=== PATIENT | male | born 1965 | race Caucasian/White ===

== ENCOUNTER 2017-04-04 22:46 | Inpatient (IN) | payer MEDICARE, OTHER ==
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
[2017-04-04 23:39] LABS: Appearance,Urine Clear (Clear); Bilirubin,Urine Negative (Negative); Blood,Urine Negative (Negative); Color,Urine Colorless; Glucose,Urine (UA) Negative (Negative); Ketones,Urine Negative (Negative); Leukocyte Esterase,Urine Negative (Negative); PH, Urine 6.5 (5.0-8.0); Protein,Urine Negative (Negative); Urobilinogen,Urine <2.0 mg/dL (<2.0)
[2017-04-04 23:50] LABS: Amphetamine Screen,Urine Not Detected (NotDetected); Barbiturate Screen,Urine Not Detected (NotDetected); Benzodiazepines Screen,Urine Not Detected (NotDetected); Cocaine Screen,Urine Not Detected (NotDetected); Methadone Screen, Urine Not Detected (NotDetected); Opiate Screen,Urine Not Detected (NotDetected); Oxycodone Screen, Urine Not Detected (NotDetected); Phencyclidine Screen,Urine Not Detected (NotDetected); Tricyclic Antidepressant,Urine Detected (NotDetected); Urn Cannabinoid Scrn Detected (NotDetected)
[2017-04-05 00:52] LABS: Basophils % (A) 0 %; Eosinophils # (A) 0.1 k/uL (0-0.7); Eosinophils % (A) 1 %; HCT 38.1 % (39.0-53.0); HGB 12.2 gm/dL (13.0-17.5); Lymphocytes % (A) 15 %; MCH 29.7 pg (25.0-35.0); MCV 92.7 fL (80.0-100.0); Mean Platelet Volume 6.2; Monocytes # (A) 0.4 k/uL (0-1.0); Monocytes % (A) 5 %; Neutrophils # (A) 5.6 k/uL (1.3-7.7); Neutrophils % (A) 78 %; Platelet Count 270 k/uL (150-450); RBC 4.11 m/uL (4.30-5.90); RDW 12.7 % (11.5-15.5); WBC 7.1 k/uL (3.8-10.6)
[2017-04-05 01:07] LABS: Specific Gravity,Urine 1.002 (1.001-1.035)
[2017-04-05 01:11] LABS: ALT 66 U/L (21-72); AST 61 U/L (17-59); Acetaminophen <10.0 ug/mL; Albumin 3.5 g/dL (3.5-5.0); Alkaline Phosphatase 91 U/L (38-126); Anion Gap 7 mmol/L; Bilirubin, Delta <0.1 mg/dL (0.0-0.2); Blood Urea Nitrogen 8 mg/dL (9-20); Calcium 9.3 mg/dL (8.4-10.2); Carbon Dioxide 28 mmol/L (22-30); Chloride 99 mmol/L (98-107); Glucose 80 mg/dL (74-99); Lithium <0.2 mmol/L; Potassium 3.9 mmol/L (3.5-5.1); Salicylate <1.0 mg/dL; Sodium 134 mmol/L (137-145); Total Bilirubin <0.1 mg/dL (0.2-1.3); Total Protein 6.1 g/dL (6.3-8.2)
[2017-04-05] MEDS ORDERED: QUEtiapine 400 MG TAB PO STA (01:36)
[2017-04-05] MEDS ORDERED: LORazepam 1 MG TAB PO PRN (02:05)
[2017-04-05] MEDS ORDERED: MAG HYDROX/AL HYDROX/SIMETH 30 ML CUP PO PRN (02:05)
[2017-04-05] MEDS ORDERED: ACETAMINOPHEN TAB 325 MG TAB PO PRN (02:05)
[2017-04-05] MEDS ORDERED: QUEtiapine 400 MG TAB PO SCH ×2 (02:30→21:00)
[2017-04-05] MEDS ORDERED: WATER FOR INJECTION, STERILE 10 ML IV ONE ×2 (02:57→15:19)
[2017-04-05] MEDS ORDERED: ZIPRASIDONE 20 MG VIAL IM ONE ×2 (02:57→15:19)
[2017-04-05] MEDS: ZIPRASIDONE 20 MG VIAL IM PRN ×2 (02:59→15:21)
[2017-04-05] MEDS: LORazepam 2 MG/ML INJ IM PRN ×2 (03:04→21:21)
[2017-04-05] MEDS ORDERED: LORazepam 2 MG/ML INJ IM ONE (05:55)
[2017-04-05] MEDS: NICOTINE 14MG/24HR PATCH TRANSDERM SCH (09:46)
[2017-04-05] MEDS: QUEtiapine 400 MG TAB PO SCH ×2 (12:06→21:22)
[2017-04-05 12:36] LABS: ALT 60 U/L (21-72); AST 50 U/L (17-59); Albumin 3.5 g/dL (3.5-5.0); Alkaline Phosphatase 74 U/L (38-126); Anion Gap 6 mmol/L; Blood Urea Nitrogen 6 mg/dL (9-20); Calcium 9.7 mg/dL (8.4-10.2); Carbon Dioxide 33 mmol/L (22-30); Chloride 103 mmol/L (98-107); Glucose 91 mg/dL (74-99); Potassium 4.3 mmol/L (3.5-5.1); Sodium 142 mmol/L (137-145); Total Bilirubin 0.2 mg/dL (0.2-1.3); Total Protein 6.1 g/dL (6.3-8.2)
[2017-04-05 12:44] LABS: Basophils % (A) 0 %; Eosinophils # (A) 0.1 k/uL (0-0.7); Eosinophils % (A) 2 %; HCT 41.4 % (39.0-53.0); HGB 13.2 gm/dL (13.0-17.5); Lymphocytes # (A) 1.1 k/uL (1.0-4.8); Lymphocytes % (A) 29 %; MCH 30.1 pg (25.0-35.0); MCHC 31.9 g/dL (31.0-37.0); MCV 94.6 fL (80.0-100.0); Mean Platelet Volume 6.4; Monocytes # (A) 0.3 k/uL (0-1.0); Monocytes % (A) 8 %; Neutrophils # (A) 2.2 k/uL (1.3-7.7); Neutrophils % (A) 57 %; Platelet Count 290 k/uL (150-450); RBC 4.38 m/uL (4.30-5.90); RDW 12.8 % (11.5-15.5); WBC 3.8 k/uL (3.8-10.6)
[2017-04-05] MEDS: QUEtiapine 100 MG TAB PO PRN (13:41)
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
[2017-04-05] MEDS ORDERED: LORazepam 2 MG/ML INJ IM STA (15:22)
[2017-04-05 17:23] LABS: Hemoglobin A1C 5.4 % (4.0-6.0)
[2017-04-05] MEDS: LITHIUM CARBONATE ER 450 MG TABLET.ER PO SCH (21:20)
[2017-04-05] MEDS: LITHIUM CARBONATE 300 MG CAP PO SCH (21:20)
[2017-04-06] MEDS ORDERED: ZIPRASIDONE 20 MG VIAL IM ONE (00:08)
[2017-04-06] MEDS ORDERED: WATER FOR INJECTION, STERILE 10 ML IV ONE ×2 (00:08→14:21)
[2017-04-06] MEDS: ZIPRASIDONE 20 MG VIAL IM PRN ×2 (00:12→14:30)
[2017-04-06] MEDS: NICOTINE 14MG/24HR PATCH TRANSDERM SCH ×3 (00:16→09:41)
[2017-04-06] MEDS ORDERED: LORazepam 2 MG/ML INJ IV STA (00:34)
[2017-04-06] MEDS ORDERED: LORazepam 2 MG/ML INJ IM STA ×2 (00:46→14:22)
--- NOTE | 2017-04-06 00:48 | P.MHFACE ---
Face to Face Eval of Restraint - Evaluation Patient's Immediate Situation: Endangers self safety, Endangers staff safety, Violent behavior Patient's Reaction to the Intervention: Cooperative, Angry, Anxious, Restless Patient's Medical & Behavioral Condition: Awake, Alert, Follows directions, Agitated, Manic, Flight of ideas Need to Continue or Terminate Restraint or Seclusion: Continue
[2017-04-06 05:28] LABS: Cholesterol 142 mg/dL (<200); HDL Cholesterol 54 mg/dL (40-60); LDL Cholesterol,Calculated 79 mg/dL (0-99); Triglycerides 44 mg/dL (<150)
[2017-04-06] MEDS ORDERED: LORazepam 2 MG/ML INJ IM PRN (08:03)
[2017-04-06] MEDS: QUEtiapine 400 MG TAB PO SCH ×2 (09:02→20:29)
[2017-04-06] MEDS: LORazepam 1 MG TAB PO PRN ×3 (09:04→19:34)
[2017-04-06] MEDS: LORATADINE 10 MG TAB PO SCH (12:14)
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
--- NOTE | 2017-04-06 14:54 | P.MHFACE ---
Face to Face Eval of Restraint - Evaluation Patient's Immediate Situation: Endangers others' safety, Endangers staff safety Patient's Immediate Situation - Comment: Patient is a 51-year-old male who is becoming increasingly agitated, yelling, demanding that his shoes be given to him. I spoken with the patient earlier today stating that he would not have issues due to having made physical threats taking swings at staff and the patient continued to request issues. Patient became increasingly demanding, went up to security threaten to kick the security dog, was making threats verbally to staff, and would not follow verbal redirection. Patient's Reaction to the Intervention: Cooperative Patient's Reaction to the Intervention - Comment: Patient was escorted to the seclusion room and was cooperative during this process and was also cooperative with restraints being placed. When I spoke with patient his speech remains slightly pressured, he stated that he just wanted his shoes so that he could look nice when his daughter visited. I explained to patient that we had discussed that he was not getting issues because of his episodes of physically and verbally threatening staff. Patient was not resisting the restraints and received Geodon 20 mg IM and Ativan 2 mg IM prior to going into seclusion and restraint. Patient's Medical & Behavioral Condition: Awake, Alert, Agitated, Manic Need to Continue or Terminate Restraint or Seclusion: Continue Need to Continue or Terminate Restraint/Seclusion - Comment: Patient has been on a one-to-one with security due to several episodes of physically aggressive and threatening behavior as well as verbally threatening behavior on the unit. Patient became increasingly agitated threatening to kick and hit the security dog, also went [id number] with the security personnel and was not responding to verbal redirection. Patient's behavior continued to escalate and seclusion and restraint were ordered to protect staff and other patient's safety.
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
[2017-04-06] MEDS ORDERED: chlorproMAZINE 25 MG/ML 2 ML AMP IM STA (20:13)
[2017-04-06] MEDS ORDERED: diphenhydrAMINE 50 MG/ML 1 ML VIAL IM STA (20:14)
[2017-04-06] MEDS: LITHIUM CARBONATE 300 MG CAP PO SCH (21:10)
[2017-04-06] MEDS: LITHIUM CARBONATE ER 450 MG TABLET.ER PO SCH (21:10)
--- NOTE | 2017-04-06 23:22 | XR ---
EXAMINATION TYPE: XR hand complete LT DATE OF EXAM: 04/06/2017 COMPARISON: NONE HISTORY: Pain TECHNIQUE: 3 views FINDINGS: There is impacted comminuted fracture of the distal radius. There is fracture of ulnar styl oid process. There is no dislocation. There is some thickening of the first metacarpal that could rel ate to old healed fracture. IMPRESSION: Fractures of the distal radius and ulna.
--- NOTE | 2017-04-06 23:23 | XR ---
EXAMINATION TYPE: XR wrist limited LT DATE OF EXAM: 04/06/2017 COMPARISON: NONE HISTORY: Pain TECHNIQUE: 2 views FINDINGS: There is impacted transverse fracture of the distal radius with comminution. Fracture line extends to the articular surface. There is transverse fracture of the ulnar styloid process. There is some anterior angulation of the radius fracture. I see no dislocation. The carpal bones appear intac t. IMPRESSION: Distal radius and ulna fractures as above.
[2017-04-07] MEDS: ZIPRASIDONE 20 MG VIAL IM PRN ×2 (02:46→22:25)
[2017-04-07] MEDS ORDERED: diphenhydrAMINE 50 MG/ML 1 ML VIAL IM PRN (03:13)
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
[2017-04-07] MEDS: LORATADINE 10 MG TAB PO SCH (08:20)
[2017-04-07] MEDS: NICOTINE 14MG/24HR PATCH TRANSDERM SCH (08:20)
[2017-04-07] MEDS: QUEtiapine 400 MG TAB PO SCH ×2 (08:21→21:03)
[2017-04-07] MEDS: LORazepam 1 MG TAB PO PRN (08:23)
[2017-04-07] MEDS: HYDROcodone/APAP 7.5-325MG 1 EACH TAB PO PRN ×2 (08:23→14:11)
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
[2017-04-07] MEDS: QUEtiapine 100 MG TAB PO PRN (13:01)
[2017-04-07] MEDS: IBUPROFEN 800 MG TAB PO PRN (13:01)
[2017-04-07] MEDS: cloZAPine 25 MG TAB PO SCH ×2 (14:08→21:03)
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
[2017-04-07] MEDS: LITHIUM CARBONATE ER 450 MG TABLET.ER PO SCH (21:03)
[2017-04-07] MEDS: LITHIUM CARBONATE 300 MG CAP PO SCH (21:20)
[2017-04-07] MEDS ORDERED: WATER FOR INJECTION, STERILE 10 ML IV ONE (22:25)
[2017-04-07] MEDS ORDERED: ZIPRASIDONE 20 MG VIAL IM ONE (22:25)
[2017-04-08] MEDS: HYDROcodone/APAP 7.5-325MG 1 EACH TAB PO PRN ×4 (04:06→21:43)
[2017-04-08] MEDS: IBUPROFEN 800 MG TAB PO PRN ×3 (06:44→21:44)
[2017-04-08] MEDS: NICOTINE 14MG/24HR PATCH TRANSDERM SCH (07:48)
[2017-04-08] MEDS: cloZAPine 25 MG TAB PO SCH (07:49)
[2017-04-08] MEDS: QUEtiapine 400 MG TAB PO SCH (07:49)
[2017-04-08] MEDS: LORATADINE 10 MG TAB PO SCH (07:49)
[2017-04-08] MEDS: QUEtiapine 100 MG TAB PO PRN ×2 (12:01→18:30)
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
[2017-04-08] MEDS ORDERED: WATER FOR INJECTION, STERILE 10 ML IV ONE (14:36)
--- NOTE | 2017-04-08 14:41 | P.PN ---
Subjective Progress Note Date: 04/08/17 Principal diagnosis: Left distal radius and ulna fractures The patient is a 51-year-old male who we've been following for a left distal radius and ulna fracture. The patient was placed in a volar splint yesterday. Repeat x-rays today reveal an improved position of the distal radius fracture. The patient is much more alert today. He states that the pain has increased in his left wrist. He is currently receiving Motrin and Lincroft is needed for pain. He states that he unwrapped his Sage wrap to loosen the wrap due to tightness. The patient states that he has been elevating his wrist. The patient is adamant about getting the wrist fixed at a different facility when he leaves the hospital. He states that he wants the wrist to be perfect. He is left- handed. He is currently staying in the mental health unit at [facility] until stable for discharge. Transfer to another psychiatric Hospital is on hold at this time. No other new complaints today. Objective - Vital Signs Vital signs: Vital Signs Temp 98.5 F 04/08/17 06:51 Pulse 91 04/08/17 06:51 Resp 18 04/08/17 06:51 BP 164/96 04/08/17 06:51 Pulse Ox 97 04/05/17 02:46 - Exam The patient is a 51-year-old male who is in no acute distress. He is alert and oriented 3. He appears agitated upon exam. Exam of the left upper extremity reveals a well fitting splint. No areas of irritation are noted. Patient has good finger motion. He complains of numbness to his left middle and ring fingers. He has full range of motion of the left elbow and shoulder. Circulatory status is intact. - Labs CBC & Chem 7: 04/05/17 11:56 04/05/17 11:56 Assessment and Plan (1) Fracture of distal end of left radius and ulna Current Visit: Yes Status: Acute Code(s): S52.502A - UNSP FRACTURE OF THE LOWER END OF LEFT RADIUS, INIT; S52.602A - UNSP FRACTURE OF LOWER END OF LEFT ULNA, INIT FOR CLOS FX SNOMED Code(s): 507813676 Plan: The clinical and x-ray findings were discussed with the patient and nursing staff. X-rays of the left wrist today reveal a better positioning of the distal radius fracture with very slight dorsal angulation. No shortening noted. This should not affect wrist range of motion in the future if fracture does not displace. No treatment is needed for the ulnar styloid fracture. The numbness he is experiencing is due to swelling in the carpal tunnel. This may improve as swelling decreases and the fractures heal. Continue Motrin and Lincroft as needed. Continue elevation of the extremity. Continue current splint. May loosen Sage wrap as needed for swelling. The patient's fracture is in an acceptable position at this time. No surgical intervention is recommended. The patient is adamant that he would like the wrist to be "perfect " and would like it fixed. He states that he wants to go a different orthopedic surgeon to get it fixed. The patient may follow-up with an orthopedic surgeon of his choosing. We will sign off at this time.
[2017-04-08] MEDS: ZIPRASIDONE 20 MG VIAL IM PRN (15:07)
--- NOTE | 2017-04-08 15:29 | XR ---
EXAMINATION TYPE: XR wrist limited LT DATE OF EXAM: 04/08/2017 COMPARISON: NONE HISTORY: 51 year-old male left distal radius fracture with splint TECHNIQUE: 2 views FINDINGS: Overlying plaster splint obscures fine osseous detail on the frontal view. Redemonstrated mildly disp laced transverse fracture through the base of the ulnar styloid process. Also, redemonstrated comminu nikko fracture of the distal radius with metadiaphyseal, metaphyseal, and epiphyseal components with a intra-articular extension at the radiolunate joint and probably the distal radial ulnar joint as well . The overall degree of dorsal angulation shows improvement. Soft tissue swelling. IMPRESSION: Comminuted fracture distal radius with intra-articular extension at the radiolunate joint. The overal l dorsal angulation shows improvement. Additional mildly displaced fracture base of the ulnar styloid process also shows less displacement i s compared to prior.
[2017-04-08] MEDS ORDERED: cloZAPine 25 MG TAB PO STA ×2 (18:22)
[2017-04-08] MEDS: LITHIUM CARBONATE 300 MG CAP PO SCH (20:17)
[2017-04-08] MEDS: LITHIUM CARBONATE ER 450 MG TABLET.ER PO SCH (20:17)
[2017-04-08] MEDS ORDERED: QUEtiapine 100 MG TAB PO SCH (21:00)
[2017-04-08] MEDS ORDERED: cloZAPine 25 MG TAB PO SCH (21:00)
[2017-04-09] MEDS ORDERED: ZIPRASIDONE 20 MG VIAL IM ONE (02:27)
[2017-04-09] MEDS ORDERED: WATER FOR INJECTION, STERILE 10 ML IV ONE ×2 (02:27→17:52)
[2017-04-09] MEDS: ZIPRASIDONE 20 MG VIAL IM PRN ×2 (02:28→18:02)
[2017-04-09] MEDS: IBUPROFEN 800 MG TAB PO PRN ×3 (03:59→20:48)
[2017-04-09] MEDS: HYDROcodone/APAP 7.5-325MG 1 EACH TAB PO PRN ×4 (04:00→21:48)
[2017-04-09] MEDS: QUEtiapine 100 MG TAB PO PRN (05:36)
[2017-04-09] MEDS: cloZAPine 25 MG TAB PO SCH ×2 (08:55→12:19)
[2017-04-09] MEDS: QUEtiapine 200 MG TAB PO SCH ×2 (08:55→21:18)
[2017-04-09] MEDS: LORATADINE 10 MG TAB PO SCH (08:55)
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
[2017-04-09] MEDS: LITHIUM CARBONATE ER 450 MG TABLET.ER PO SCH (20:47)
[2017-04-09] MEDS: LITHIUM CARBONATE 300 MG CAP PO SCH (20:48)
[2017-04-09] MEDS ORDERED: cloZAPine 25 MG TAB PO SCH (21:00)
[2017-04-10] MEDS: QUEtiapine 100 MG TAB PO PRN (00:59)
[2017-04-10] MEDS ORDERED: ZIPRASIDONE 20 MG VIAL IM ONE (02:06)
[2017-04-10] MEDS ORDERED: WATER FOR INJECTION, STERILE 10 ML IV ONE (02:06)
[2017-04-10] MEDS: ZIPRASIDONE 20 MG VIAL IM PRN (02:11)
[2017-04-10] MEDS: HYDROcodone/APAP 7.5-325MG 1 EACH TAB PO PRN ×4 (05:09→23:00)
[2017-04-10] MEDS: IBUPROFEN 800 MG TAB PO PRN ×3 (05:12→21:18)
[2017-04-10] MEDS: LORATADINE 10 MG TAB PO SCH ×2 (07:55→09:10)
[2017-04-10] MEDS: QUEtiapine 200 MG TAB PO SCH (07:55)
[2017-04-10] MEDS: cloZAPine 25 MG TAB PO SCH ×4 (07:55→21:16)
[2017-04-10] MEDS ORDERED: cloZAPine 25 MG TAB PO SCH (09:00)
[2017-04-10] MEDS: QUEtiapine 100 MG TAB PO SCH ×2 (09:09→21:16)
[2017-04-10] MEDS: NICOTINE POLACRILEX 2 MG GUM BUCCAL PRN ×4 (09:11→19:33)
[2017-04-10] MEDS ORDERED: amLODIPine 5 MG TAB PO SCH (09:45)
--- NOTE | 2017-04-10 10:04 | XR ---
EXAMINATION TYPE: XR wrist complete LT , 4 VIEWS DATE OF EXAM ORDERED: 04/10/2017 HISTORY: pain and known fracture. COMPARISON: Previous study dated 04/08/2017. FINDINGS: There is a fracture of the distal radius and ulna. The radial fracture extends intra-artic ularly and is mildly comminuted. Position and alignment are similar to previous. IMPRESSION: REDEMONSTRATION OF FRACTURES OF THE DISTAL RADIUS AND ULNA. CODE D: SUBSEQUENT ENCOUNTER FOR CLOSED FRACTURE WITH ROUTINE HEALING.
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
--- NOTE | 2017-04-10 12:17 | P.PN ---
Progress Note - Text Progress Note Date: 04/10/17 Interval History: Patient is a 51-year-old male who was seen today. Initially this morning on entering the unit the patient was agitated, yelling, calling me names. When I spoke with patient later this afternoon he was calm her and stated that he just goes off like that when he is told to do things. Patient apologized for his behavior to me this morning. Patient stated that he is tired of being told what to do as he is spent the last 10 years in facilities. Patient reports his last nursing home only had 4 residents and he was being followed up in [place], he is attempting to locate the name of the facility as he states it was not [facility] nor [facility] in [place]. Patient reports that he was using his Seroquel on an as-needed basis at home as his prescriptions had not been refilled because he missed appointments and he had run out of lithium completely. Patient states at home he was only sleeping 1-2 hours a night and was up doing things. Patient states that his sleep here continues to be interrupted and he states he thought he slept about 4 hours last night. Patient reports no side effects from the medication. Patient was able to find out from his fianc that he had been followed at [facility] [place] in [place] while he was in the nursing home in [place]. Mental Status: Appearance/Attitude: Patient was dressed in a hospital gown over pajama bottoms, wearing slippers and now having the splint on his left forearm. Patient was cooperative Behavior: Patient did not exhibit any psychomotor agitation or retardation during my interview however the patient this morning was extremely agitated, yelling, pacing and making demands. Speech/Language: Patient's speech was spontaneous of normal volume and rhythm and he was coherent Thought Process: Patient was goal-directed he was not tangential or circumstantial and there is no evidence of loose associations or flight of ideas. Thought Content: Patient was not responding to internal stimuli and denied auditory or visual hallucinations and no paranoid or delusional ideation was elicited. Patient stated to me that he becomes easily upset and angry as he did this morning when he is being told to do things. He states that he's been told to do things for the last 10 years. Patient apologized for his behavior this morning and states that he knows that he should not act that way. Patient states he slept about 4 hours last evening. Suicidal/Homicidal Ideation: Patient denies any current suicidal or homicidal ideation. Sensorium/Cognition: Patient is alert and oriented to person, place, and time and his recent and remote memory were grossly intact. Mood/Affect: Patient's mood remained labile with periods of cooperation as well as periods of agitation and his affect is appropriate to his mood Insight/Judgment: Patient's insight and judgment are limited. Assessment: Patient had an EKG yesterday which showed an incomplete right bundle branch block and was reviewed by the resident medical officer and felt to not be of significance, his forearm was re-x-rayed this morning showing that there was no change in the alignment. Patient has put on his splint and states she will continue to wear it. Patient was seen by the resident medical officer advised that he needed to wear the splint. Patient has outbursts of becoming quite angry, agitated and he reports it is in response to being told what to do. Patient states he knows he should not act that way and apologized for his behavior toward me this morning. Patient reported that he was followed at [facility] in [place] while he was living in a nursing home in [place]. Patient also stated today that he had been using his Seroquel on an as-needed basis at home because he was running out of the medication and had been off of the lithium for some time. Patient is not having any side effects from the medication, his blood pressure was elevated and the resident medical officer' s started him on an anti-hypertensive. Plan: [Patient will be increased to 75 mg of Clozaril 3 times a day, his Seroquel will be decreased to 100 mg twice a day, Seroquel 100 mg 3 times a day on an as-needed basis will be continued, Benadryl 50 mg IM twice a day when necessary will also be continued as well as Geodon 20 mg IM twice a day when necessary. Patient will also continue on lithium carbonate 1050 mg a day and a repeat level will be drawn on Tuesday and should remain at 0.5 his dose will be increased to 1200 mg. I discussed the above changes in medication with the patient and he was agreeable to all of these. Patient is also now receiving Norvasc for his elevated blood pressure. Patient continues to request that he be allowed to use chewing tobacco or go out for cigarette and he is reminded that he is not able to do so, but states that the Nicorette gum and patch do not work for him. Will have patient sign a release of information and faxed to [facility] [place] to obtain treatment information while he was being seen there. Patient has not retracted his 3 day notice and will discuss again with him tomorrow and if he does not retract will begin an involuntary process.
[2017-04-10] MEDS: diphenhydrAMINE 50 MG/ML 1 ML VIAL IM PRN (14:21)
[2017-04-10] MEDS ORDERED: amLODIPine 5 MG TAB PO STA (15:52)
[2017-04-10] MEDS: LITHIUM CARBONATE 300 MG CAP PO SCH (21:16)
[2017-04-10] MEDS: LITHIUM CARBONATE ER 450 MG TABLET.ER PO SCH (21:16)
[2017-04-11] MEDS ORDERED: WATER FOR INJECTION, STERILE 10 ML IV ONE (01:15)
[2017-04-11] MEDS ORDERED: ZIPRASIDONE 20 MG VIAL IM ONE (01:15)
[2017-04-11] MEDS: ZIPRASIDONE 20 MG VIAL IM PRN (01:15)
[2017-04-11] MEDS: NICOTINE POLACRILEX 2 MG GUM BUCCAL PRN ×2 (01:15→19:49)
[2017-04-11] MEDS: diphenhydrAMINE 50 MG/ML 1 ML VIAL IM PRN (01:16)
[2017-04-11] MEDS: HYDROcodone/APAP 7.5-325MG 1 EACH TAB PO PRN ×3 (05:33→16:38)
[2017-04-11] MEDS: amLODIPine 5 MG TAB PO SCH (09:40)
[2017-04-11] MEDS: cloZAPine 25 MG TAB PO SCH ×2 (09:40→14:32)
[2017-04-11] MEDS: LORATADINE 10 MG TAB PO SCH (09:41)
[2017-04-11] MEDS: IBUPROFEN 800 MG TAB PO PRN ×3 (09:43→22:28)
[2017-04-11] MEDS: QUEtiapine 100 MG TAB PO SCH (09:43)
[2017-04-11] MEDS: BENZOCAINE/MENTHOL LOZENG 1 EACH LOZENGE MUCOUS MEM PRN ×4 (11:08→22:29)
[2017-04-11] MEDS ORDERED: QUEtiapine 25 MG TAB PO PRN (12:47)
--- NOTE | 2017-04-11 12:47 | P.PN ---
Progress Note - Text Progress Note Date: 04/11/17 Interval History: Patient is a 51-year-old male who was seen today, patient reports that he still is only sleeping about 2 hours a night. Patient states that he continues to have a lot of energy and went on to describe that when he was at the longterm and he was allowed to go outside he was running 5 miles a day or biking up to 40 miles a day. Patient also told me that he was working a job near the longterm and was not eating more than one meal a day. Patient states he had a lot of energy when he was at the longterm as well. Patient went on to state that he was of great help to other residents there and likes to think that he can help others while he is here. Patient went on to describe an episode when he was at [facility] where he assisted a patient who had a seizure. Patient reported that he is not feeling tired. Patient requested his shoes back and we discussed when that would occur and he was agreeable with that. Patient and I also discussed his 3 day notice. Patient reports no side effects from the medication and has been continuing to leave his splint on his left forearm. Mental Status: Appearance/Attitude: Patient is appropriately dressed, makes eye contact and is cooperative. Behavior: Patient does not display any psychomotor agitation or retardation. Patient does walk the halls Speech/Language: Patient's speech is pressured and of normal volume and rhythm at times he can become loud but follows verbal redirection to lower his voice and he is coherent Thought Process: Patient is goal-directed initially when responding to questions but can become tangential, no loose associations or flight of ideas Thought Content: Patient denied auditory or visual hallucinations and no paranoid or delusional ideation was elicited. Patient reports he is not feeling tired sleeping about 2 hours a night and does nap on and off during the day. Patient states that he is walking the halls and likes to keep himself busy. 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 Patient reports his appetite is good and states that he had not been eating much when he was in the longterm. Patient states he had a lot of energy there and was exercising on a daily basis there. Suicidal/Homicidal Ideation: Patient denied any current homicidal or suicidal ideation Sensorium/Cognition: Patient is alert and oriented to person, place, time and his recent and remote memory are grossly intact Mood/Affect: Patient's mood has been less labile, and his affect is appropriate Insight/Judgment: Patient's insight and judgment are fair Assessment: Patient was irritable yesterday morning but has been cooperative since that time with no outbursts, verbal threats or physically threatening behavior. Patient states that he continues to sleep about 2 hours a night and has a lot of energy and is seen walking the unit most of the day. Patient reports his appetite has improved. Patient reports that he has been leaving his splint on his left arm, reports the pain is tolerable. Patient and I discussed his 3 day notice, his medications, when he could have his shoes returned to him and he was cooperative during this interview. Plan: Patient will continue His Clozaril titrated up and will now be on 75 mg in the morning 75 mg in afternoon and 100 at bedtime, Seroquel was decreased to 50 mg twice a day area patient will continue on lithium at 1050 mg a day with a repeat of both his lithium level and a CBC with a differential tomorrow. Should the patient's lithium level remained 0.5 I will increase his dose. Patient and I discussed he is now on a one to one with security only and should he have 24 hours of no episodes of agitation, threatening behavior both verbally or physically than he can go to a one-on-one with staff. Patient was agreeable with this plan and also withdrew his 3 day notice.
[2017-04-11] MEDS ORDERED: cloZAPine 100 MG TAB PO SCH (21:00)
[2017-04-11] MEDS: LITHIUM CARBONATE ER 450 MG TABLET.ER PO SCH (21:03)
[2017-04-11] MEDS: QUEtiapine 50 MG TAB PO SCH (21:05)
[2017-04-11] MEDS: LITHIUM CARBONATE 300 MG CAP PO SCH (21:05)
[2017-04-12] MEDS ORDERED: WATER FOR INJECTION, STERILE 10 ML IV ONE ×2 (03:41→22:12)
[2017-04-12] MEDS: ZIPRASIDONE 20 MG VIAL IM PRN ×3 (03:52→23:56)
[2017-04-12] MEDS: diphenhydrAMINE 50 MG/ML 1 ML VIAL IM PRN (03:53)
[2017-04-12] MEDS: BENZOCAINE/MENTHOL LOZENG 1 EACH LOZENGE MUCOUS MEM PRN ×4 (04:47→22:21)
[2017-04-12] MEDS: HYDROcodone/APAP 7.5-325MG 1 EACH TAB PO PRN ×3 (05:26→18:03)
[2017-04-12] MEDS: IBUPROFEN 800 MG TAB PO PRN ×2 (05:27→15:26)
[2017-04-12] MEDS: LORATADINE 10 MG TAB PO SCH (09:07)
[2017-04-12] MEDS: QUEtiapine 50 MG TAB PO SCH (09:08)
[2017-04-12] MEDS: amLODIPine 5 MG TAB PO SCH (09:08)
[2017-04-12] MEDS: cloZAPine 25 MG TAB PO SCH ×2 (09:08→15:20)
[2017-04-12 10:24] LABS: HCT 43.6 % (39.0-53.0); HGB 13.9 gm/dL (13.0-17.5); MCH 29.2 pg (25.0-35.0); MCHC 31.9 g/dL (31.0-37.0); MCV 91.4 fL (80.0-100.0); Mean Platelet Volume 6.5; Platelet Count 358 k/uL (150-450); RBC 4.77 m/uL (4.30-5.90); RDW 12.4 % (11.5-15.5); WBC 7.8 k/uL (3.8-10.6)
--- NOTE | 2017-04-12 13:13 | P.PN ---
Progress Note - Text Progress Note Date: 04/12/17 Interval History: Patient is a 51-year-old male who was seen this morning and stated that he slept more last evening and naps during the day. Patient was requesting that he be given his shoes, as well as a sling for his arm. Patient continues to request to be released so that he can smoke a cigarette or 2 tobacco. Patient has been with one to one with security and there've been no incidents of threatening or assaultive behavior. Patient does not report any auditory or visual hallucinations and states he is not feeling suicidal or homicidal. Patient continues to have a lot of energy, he states he is not feeling tired and that his arm still does hurt on occasion but he is not taking any opiate pain medication. Patient reports no side effects from the medication and states he is not feeling groggy during the day. Mental Status: Appearance/Attitude: Patient is dressed in casual clothes, makes eye contact and is cooperative Behavior: Patient does not display any psychomotor agitation or retardation. Speech/Language: Patient's speech remains pressured, at loud at times and he is coherent Thought Process: Patient is goal-directed, can become tangential but there is no loose associations or flight of ideas elicited Thought Content: patient denies auditory or visual hallucinations no delusions or paranoid ideation were elicited. Patient does make demands to be released to smoke, questioning how long he needs to be here but is redirectable. Patient states that he slept more last night about 3-1/2 hours. Patient does state that he will rest in his room during the day but is not napping. Suicidal/Homicidal Ideation: Patient denies any current suicidal or homicidal ideation Sensorium/Cognition: Patient is alert and oriented to person, place, and time and his recent and remote memory are grossly intact Mood/Affect: Patient's mood remains irritable, and his affect is appropriate to his mood Insight/Judgment: Patient's insight and judgment are fair Assessment: Patient has not displayed any verbally or physically threatening behavior, he slept for 3-1/2 hours last evening and he has been redirectable on the unit and cooperative leaving his splint on his left arm. Patient continues to request to be discharged so that he can smoke or chew tobacco. Patient reports no side effects from the medication and states that he did sleep well last evening, this was 3-1/2 hours the most he is slept since his admission. He denies any grogginess during the day. Patient has been eating well. Patient attends intermittent groups. Patient's lithium level was drawn late and was 0.4 awaiting the [facility] differential Plan: Patient's lithium will be increased to 600 mg twice a day, his Clozaril will be increased to 75 mg twice a day and 150 mg at bedtime. We will discontinue his Seroquel standing order. We'll reorder and check his lithium level in several days. Patient's one-to-one supervision was discontinued, patient was returned his shoes and was permitted to have a sling for his left arm.
--- NOTE | 2017-04-12 14:17 | P.PN ---
Subjective Progress Note Date: 04/12/17 Principal diagnosis: Hypertension Patient is a 51-year-old male with a past medical history seasonal ALLERGIES, headaches, BPH, and deltoid injury who was admitted to the mental health unit via a petition from [facility] and was brought in by police due to disorganized in the behavior. He had a left wrist fracture, has seen ortho it was reduced and in good alignment. Ortho has signed off as patient wants to follow with a different surgeon to make sure his wrist is perfect. He was been taking his splint off multiple times and refusing to wear the splint. Patient seen and examined. He is asking to recheck his blood pressure. I rechecked it was 149/89 and has been coming down slightly. He states that it is lower when he is not anxious. He is also wondering about wearing a sling as his splint feels heavy and difficult to keep his arm elevated all day. I did discuss this with Dr. Tijerina and she felt it was safe for him to have a sling at this point in time. He is asking about when to follow up with for the fracture. We discussed the fact that he did not want to see the [place] group anymore here and they therefore stayed stated he could follow up with whomever he wanted. He states he does not remember saying this, but that he was very angry when it happened and he is doing much better and is glad he came in for treatment. He is now willing to follow up with them and I have placed Dr. Bejarano information on the discharge tab, he also states it might be easier to follow up in [place] as his girlfriend lives there and I have placed an additional orthopedic surgeons information Dr. Saeed Lo on the chart who practices out of [place]. He lives in [place] and needs a primary care physician to follow with. I will place Dr. Hanny Alcantara's information on the chart who practices out of [facility]. Objective - Vital Signs Vital signs: Vital Signs Temp 98.5 F 04/12/17 02:12 Pulse 105 H 04/12/17 02:12 Resp 16 04/12/17 02:12 BP 160/90 04/12/17 02:32 Pulse Ox 97 04/05/17 02:46 - Exam General: non toxic, no distress, appears at stated age Derm: warm, dry, capillary refill less than 2 seconds left fingers Head: atraumatic, normocephalic, symmetric Eyes: EOMI, no lid lag, anicteric sclera Cardiovascular: S1S2 reg, no murmur Lungs: CTA bilateral, no rhonchi, no rales , no accessory muscle use Ext: Left wrist with splint in place, no edema in bilateral lower extremities Psych: Alert, oriented, adversarial - Labs CBC & Chem 7: 04/12/17 09:40 04/05/17 11:56 Assessment and Plan Assessment: Left ridal and ulnar fractures - Maintain splint, and sling for comfort -He will need follow-up with orthopedics approximately one week after discharge. I have placed follow-up information on the tablet as outlined above in HPI. -Pain control HTN - Continue Norvasc 10 mg daily -He'll need outpatient follow-up for this may have placed Dr. Alcantara's information on the chart she practices near his home Seasonal ALLERGIES -Claritin Multiple facial lacerations, healed Bipolar with psychosis/aggression -Your psych management Tobacco and marijuana use -Cessation encouraged -Nicotine replacement Thank you for allowing us to participate in the care of this patient. We will follow peripherally. Do not hesitate to contact us with questions. Someone can be reached from the [facility] hospitalist group at all hours of the day at [phone].
[2017-04-12 14:55] LABS: Eosinophils # (M) 0.23 k/uL (0-0.7); Lymphocytes # (M) 0.47 k/uL (1.0-4.8); Monocytes # (M) 0.31 k/uL (0-1.0); Neutrophils # (M) 6.79 k/uL (1.3-7.7); Neutrophils % (M) 87 %; Nucleated Red Blood Cells 0 /100 WBC (0-0); Total Cells Counted 100
[2017-04-12] MEDS: LITHIUM CARBONATE 300 MG CAP PO SCH (20:16)
[2017-04-12] MEDS ORDERED: cloZAPine 100 MG TAB PO SCH (21:00)
[2017-04-12] MEDS: PROPRANOLOL 20 MG TAB PO STA ×2 (22:05→23:22)
[2017-04-12] MEDS ORDERED: ZIPRASIDONE 20 MG VIAL IM ONE ×2 (22:12→23:47)
[2017-04-13] MEDS ORDERED: LORazepam 1 MG TAB PO STA (00:53)
[2017-04-13] MEDS ORDERED: ZIPRASIDONE 20 MG VIAL IM STA (00:53)
[2017-04-13] MEDS ORDERED: LORazepam 2 MG/ML INJ ONE (00:55)
[2017-04-13] MEDS: BENZOCAINE/MENTHOL LOZENG 1 EACH LOZENGE MUCOUS MEM PRN ×2 (03:31→07:47)
[2017-04-13] MEDS: diphenhydrAMINE 50 MG/ML 1 ML VIAL IM PRN ×2 (03:49→16:05)
[2017-04-13] MEDS: HYDROcodone/APAP 7.5-325MG 1 EACH TAB PO PRN ×3 (05:30→19:50)
[2017-04-13] MEDS: IBUPROFEN 800 MG TAB PO PRN (05:31)
[2017-04-13] MEDS: LITHIUM CARBONATE 300 MG CAP PO SCH ×3 (10:18→22:25)
[2017-04-13] MEDS: LORATADINE 10 MG TAB PO SCH (10:18)
[2017-04-13] MEDS: amLODIPine 5 MG TAB PO SCH (10:18)
[2017-04-13] MEDS: NICOTINE POLACRILEX 2 MG GUM BUCCAL PRN ×4 (10:41→19:46)
[2017-04-13] MEDS ORDERED: BENZTROPINE 2 MG/2 ML AMP IM PRN (11:33)
[2017-04-13] MEDS ORDERED: LORazepam 2 MG/ML INJ IM STA (11:37)
[2017-04-13] MEDS ORDERED: flUPHENAZine 2.5 MG/ML (MDV) 10 ML VIAL IM SCH (12:00)
[2017-04-13] MEDS: PROPRANOLOL LA 60 MG CAP.SA.24H PO SCH (14:10)
[2017-04-13] MEDS: cloZAPine 100 MG TAB PO SCH ×2 (14:10→19:48)
[2017-04-13] MEDS ORDERED: flUPHENAZine 2.5 MG/ML (MDV) 10 ML VIAL IM ONE (16:00)
--- NOTE | 2017-04-13 17:30 | P.PN ---
Progress Note - Text Progress Note Date: 04/13/17 Interval History: Patient is a 51-year-old male who beginning this morning began yelling and screaming at my office door, threw a cup of coffee on the door and began pounding on the door. Patient apparently became agitated last evening and required additional medication. Patient continued throughout the day to come to the office door, yelling, hitting the door, calling me names. Patient was refusing his oral medications morning. Patient would continue come to the office door and would not respond to verbal redirection to leave. Mental Status: Patient was not seen [id number] due to his threatening behavior towards any, while banging on the office door he stated that he wanted to leave, complained about his past treatment in hospitals in his incarceration for the last 10 years. Patient states that he does not want to be punished. Patient states that he is being treated badly, wants to know why he is on a one- to-one supervision with a security guard dispatcher and demands that he beginning his shoes back. Patient states that he's being punished, was verbally threatening as well as calling me names. Patient is been intrusive on the unit, yelling at at other patients, telling one patient to go ahead and hit him. Patient states that he is only trying to help other patients, stating he was trying to help the patient last night and staff would not let him. Patient did not sleep last night. Assessment: Patient became increasingly agitated last evening requiring additional medication. Patient is refusing oral medication today. Patient is extremely agitated, yelling, coming to my office door banging on the door, yelling loudly through the door earlier this morning threw a cup of coffee out the door and threw get a yogurt container down the roberts. Patient demands that he be released, reporting that he has been punished and has been incarcerated for 10 years. Patient is demanding, refusing oral medication, is redirected to his room where he began scratching himself stating that he was going to punish himself. Patient also threatened to hit his head and continued to scratch himself if staff opened the door to check on him. Patient was later agreeable to stay in his room with the door open so that staff could check on him. Some information was received from case management [place], in the packet were the results of UDS, as well as a lithium level of 1.2 but no information was provided on the patient's medications, nor any physician records were provided. Plan: Patient remains agitated, verbally threatening, remains on a one-to-one supervision with a security guard dispatcher and has required IM medication. Patient is refusing his oral medicines which were adjusted to Clozaril 100 mg at a.m. and 1 PM and 200 mg at 7 PM. Patient continues on lithium 600 mg twice a day. Patient's Seroquel when necessary, Geodon when necessary were discontinued and the patient was placed on Prolixin 2.5 mg every 6 hours when necessary for his agitated, threatening behavior. Patient also has Cogentin 2 mg every 12 hours when necessary for extrapyramidal symptoms as well as Benadryl 50 mg IM every 12 hours when necessary. Patient has received Prolixin 2.5 mg IM as well as another dose of Prolixin 5 mg IM when necessary for continued threatening behavior, agitation and lack of following verbal redirection. Patient had been improving on the Clozaril with a decrease in his aggression until last evening as his Seroquel dose had been slowly decreased from a max dose of 800 mg and it appears that the patient is going to require 2 antipsychotics to control his manic symptoms as well as his aggressive behavior. As the patient was not complying with oral medications a petition and first certification were also completed today.
[2017-04-14] MEDS: HYDROcodone/APAP 7.5-325MG 1 EACH TAB PO PRN ×4 (02:09→21:03)
[2017-04-14] MEDS: LITHIUM CARBONATE 300 MG CAP PO SCH ×3 (02:15→20:17)
[2017-04-14] MEDS: BENZOCAINE/MENTHOL LOZENG 1 EACH LOZENGE MUCOUS MEM PRN ×3 (02:28→21:01)
[2017-04-14] MEDS: flUPHENAZine 2.5 MG/ML (MDV) 10 ML VIAL IM PRN (02:41)
[2017-04-14] MEDS: diphenhydrAMINE 50 MG/ML 1 ML VIAL IM PRN ×2 (02:41→16:31)
[2017-04-14] MEDS: NICOTINE POLACRILEX 2 MG GUM BUCCAL PRN ×7 (03:55→21:03)
[2017-04-14] MEDS: IBUPROFEN 800 MG TAB PO PRN ×3 (06:55→20:21)
[2017-04-14] MEDS: PROPRANOLOL LA 60 MG CAP.SA.24H PO SCH (08:56)
[2017-04-14] MEDS: cloZAPine 100 MG TAB PO SCH ×3 (08:57→20:16)
[2017-04-14] MEDS: amLODIPine 5 MG TAB PO SCH (08:57)
[2017-04-14] MEDS: LORATADINE 10 MG TAB PO SCH (09:44)
--- NOTE | 2017-04-14 10:03 | P.PN ---
Progress Note - Text Progress Note Date: 04/14/17 Interval History: Patient is a 51-year-old male who was seen today with the event security officer. Patient was much more cooperative and states that he got angry yesterday and was punishing himself by hitting himself as well as scratching himself because he thought he was being punished by us so he was going to punish himself. Patient states that he slept last night and felt that the new medication, Prolixin was making him feel less angry and calmer. Patient and I also discussed his having a petition and first certification done secondary to his not taking his oral medications yesterday. Patient has been compliant beginning last evening with his oral medications and states that the Clazuril did help him feel relaxed. Patient stated that he is here to help people, will be cooperative, and again went over his side effects from 800 mg of Seroquel in the past, his being confined for 10 years, and his having increased energy while he was in the long term and the need to exercise most of the day. Patient reported no side effects from the medication. Patient denied any current suicidal ideation or homicidal ideation and states that he has no intent to scratch or hit himself again. Patient has been eating Mental Status: Appearance/Attitude: Patient is dressed casually, there scratch douglas on his forehead, he has a bruise below his right eye, he made eye contact and was cooperative Behavior: Patient did not exhibit any psychomotor agitation or retardation, he sat quietly during the interview Speech/Language: Patient's speech becomes pressured, he spoke in a normal rhythm and volume and he was coherent Thought Process: Patient is initially goal-directed and then becomes tangential going over his difficulties in the past with medication specifically Seroquel, his 10 years being confined, his need to work out. Thought Content: Patient denies auditory or visual hallucinations and no paranoid ideation is elicited. Patient continues to express that he is here to help other patients and became angry because he wasn't allowed to do so. The patient stated that when he is told he can't do something he does get angry. Patient states he slept last evening and staff reported 4 hours. Patient states he is eating well. Suicidal/Homicidal Ideation: Patient denies current suicidal or homicidal ideation. Sensorium/Cognition: Patient is alert and oriented to person, place, time and his recent and remote memory are grossly intact. Mood/Affect: Patient's mood remains labile, currently he is calm and much less irritable and his affect is appropriate to his mood Insight/Judgment: Patient's insight and judgment are limited Assessment: Patient was seen today and was much more cooperative, less agitated and able to carry on an interview without becoming verbally abusive or threatening. Patient continues to report that he is here to help others and that he gets angry when he is told he can't do something. Patient states that the medication did help him sleep better last night and he slept for 4 hours. Patient also felt that the injectable medication, Prolixin was beneficial for him yesterday. Patient continues to go over and ruminate about his past 10 years in the system, his reaction to Seroquel in the past as well as discussing his family specifically his mother and father. Patient continues with one-to- one supervision with a event security officer. Patient has replaced the [place] bandage on his left forearm. Plan: Orthopedic consultation was requested to read cast a splint as the patient broke his yesterday. He is agreeable to have the splint replaced in the [place] bandage over top of that. Patient remains on one-to-one supervision with a event security officer, he does not have his shoes and I discussed with him that his behavior needs to be under control with no episodes of physically threatening, verbally abusive or threatening behavior before this will be discontinued and issues would be returned. Patient and I also discussed the involuntary process and the fact that that was started yesterday due to his refusal to take medication. Patient has been taking his medications orally currently and will continue on clozapine 100 mg twice a day and 200 mg in the evening. Patient will also continue on lithium carbonate 600 mg twice a day and I will order a lithium level tomorrow morning. Patient and I discussed beginning Prolixin orally as he felt that the injections yesterday were beneficial and he will begin to 0.5 mg twice a day as well as Cogentin 0.5 mg twice a day. Patient continues to require hospitalization due to his labile mood with episodes of agitation, verbally and physically threatening behavior.
[2017-04-14] MEDS: BENZTROPINE MESYLATE 0.5 MG TAB PO SCH ×2 (11:00→20:17)
--- NOTE | 2017-04-14 15:43 | P.PN ---
Progress Note - Text Progress Note Date: 04/14/17 A script for a 10" wrist brace was sent over to [facility]. He may continue to brace until seen by an orthopedic surgeon after discharge. He is strongly encouraged to keep brace on at all times, he may remove to wash hands or shower.
[2017-04-14] MEDS: BACITRACIN 500 UNIT/GM OINT 28.4 GM TUBE TOPICAL SCH (22:34)
[2017-04-15] MEDS: NICOTINE POLACRILEX 2 MG GUM BUCCAL PRN ×5 (04:24→16:39)
[2017-04-15] MEDS: HYDROcodone/APAP 7.5-325MG 1 EACH TAB PO PRN ×3 (04:24→15:25)
[2017-04-15] MEDS: BENZOCAINE/MENTHOL LOZENG 1 EACH LOZENGE MUCOUS MEM PRN ×4 (05:22→18:33)
[2017-04-15] MEDS: IBUPROFEN 800 MG TAB PO PRN ×3 (05:24→20:18)
[2017-04-15] MEDS: flUPHENAZine 2.5 MG/ML (MDV) 10 ML VIAL IM PRN ×3 (05:26→19:31)
[2017-04-15] MEDS: amLODIPine 5 MG TAB PO SCH (08:47)
[2017-04-15] MEDS: cloZAPine 100 MG TAB PO SCH ×3 (08:47→18:32)
[2017-04-15] MEDS: BENZTROPINE MESYLATE 0.5 MG TAB PO SCH ×2 (08:47→20:15)
[2017-04-15] MEDS: PROPRANOLOL LA 60 MG CAP.SA.24H PO SCH (08:47)
[2017-04-15] MEDS: LORATADINE 10 MG TAB PO SCH (08:48)
[2017-04-15] MEDS: LITHIUM CARBONATE 300 MG CAP PO SCH ×2 (08:48→20:15)
[2017-04-15] MEDS: BACITRACIN 500 UNIT/GM OINT 28.4 GM TUBE TOPICAL SCH ×2 (08:53→20:17)
[2017-04-15 09:17] LABS: Basophils # (A) 0.1 k/uL (0-0.2); Basophils % (A) 1 %; Eosinophils # (A) 0.4 k/uL (0-0.7); Eosinophils % (A) 5 %; HCT 42.1 % (39.0-53.0); HGB 13.5 gm/dL (13.0-17.5); Lymphocytes # (A) 1.4 k/uL (1.0-4.8); Lymphocytes % (A) 19 %; MCH 29.1 pg (25.0-35.0); MCHC 32.1 g/dL (31.0-37.0); MCV 90.5 fL (80.0-100.0); Mean Platelet Volume 6.4; Monocytes # (A) 0.4 k/uL (0-1.0); Monocytes % (A) 6 %; Neutrophils # (A) 5.3 k/uL (1.3-7.7); Neutrophils % (A) 68 %; Platelet Count 370 k/uL (150-450); RBC 4.65 m/uL (4.30-5.90); RDW 12.3 % (11.5-15.5); WBC 7.7 k/uL (3.8-10.6)
--- NOTE | 2017-04-15 10:09 | PN ---
PROGRESS NOTE DATE OF SERVICE: 04/15/2017. CHIEF COMPLAINT: The patient was admitted on petition for disorganized and violent behavior. He had labile mood. He was threatening and appeared to have delusions. He has long-term psychiatric issues. INTERVAL HISTORY: Patient has been doing fair. He has had some significant difficulties with his behavior. On Tuesday, he became quite agitated and disruptive. He required 2-on-1 observation and support. The patient today tells me that the medication changes Dr. Tijerina made have seemed to help. He felt better yesterday. He says he has been able to sleep better the last 2 nights and says last night he slept about 6 hours. He feels calmer today. He notes that he feels clearer in his thoughts. He was able to give a fairly accurate accounting of issues that he had talked with Dr. Tijerina about yesterday what he told me spontaneously this morning that matches quite closely with things that were documented in Dr. Tijerina's progress note from yesterday. He has not had change in his general health. He tolerates his psychotropic medications. MENTAL STATUS: Patient gave good eye contact. Psychomotor activity was a little restless. Speech was clear. He answered questions with direct responses. He was spontaneous and interactive. His affect was somewhat constricted. He had a calm manner. He is somewhat dysphoric in his mood, though not significantly depressed. He did not appear distressed when I talked to him. ASSESSMENT: I will continue the current diagnosis and treatment plan. I will continue psychotropic medications the same. I will obtain a clozapine level. The patient does feel that medication adjustments Dr. Tijerina has made are helping. We will continue to monitor for difficulties the patient has been having with mood and behavior. We will focus on stabilization and discharge planning. MMODL / IJN: [id number] /
[2017-04-16] MEDS: HYDROcodone/APAP 7.5-325MG 1 EACH TAB PO PRN ×4 (04:03→21:26)
[2017-04-16] MEDS: IBUPROFEN 800 MG TAB PO PRN ×2 (04:04→12:57)
[2017-04-16] MEDS: BENZOCAINE/MENTHOL LOZENG 1 EACH LOZENGE MUCOUS MEM PRN (04:06)
[2017-04-16] MEDS: NICOTINE POLACRILEX 2 MG GUM BUCCAL PRN ×6 (07:16→21:27)
[2017-04-16] MEDS: BACITRACIN 500 UNIT/GM OINT 28.4 GM TUBE TOPICAL SCH ×2 (08:29→20:23)
[2017-04-16] MEDS: PROPRANOLOL LA 60 MG CAP.SA.24H PO SCH (08:30)
[2017-04-16] MEDS: BENZTROPINE MESYLATE 0.5 MG TAB PO SCH ×2 (08:30→20:23)
[2017-04-16] MEDS: LORATADINE 10 MG TAB PO SCH (08:30)
[2017-04-16] MEDS: cloZAPine 100 MG TAB PO SCH ×3 (08:30→18:49)
[2017-04-16] MEDS: amLODIPine 5 MG TAB PO SCH (08:31)
[2017-04-16] MEDS: LITHIUM CARBONATE 300 MG CAP PO SCH (08:31)
[2017-04-16] MEDS: flUPHENAZine 2.5 MG/ML (MDV) 10 ML VIAL IM PRN ×2 (10:51→16:17)
--- NOTE | 2017-04-16 13:13 | P.PN ---
Progress Note - Text Progress Note Date: 04/16/17 Interval history: The patient was seen in library with RN ,he requested to be off 1:1,patient reports that Prolixin is helping in addition to Clozaril and [place] ,patient had 2 PRN Prolixin yesterday , patient endorses:initial insomnia and low frustration tolerance ,he talked about his extensive hx of ND and he was able to identify what triggering his anger outbursts"When people telling me what to do or do not listen to me",he is aware that he has PRN if he felt irritable or agitated He denies any hallucinations,denies any suicidal or homicidal ideation,denies any side-effect from current psychotropic medications Reviewed Lab:LITHIUM :0.3 Mental status exam: The patient is male he is dressed in his own clothing . Eye contact is good ,hyperverbal ,pressured speech , . He is endorsing no auditory or visual hallucinations. He is endorsing no specific delusions. . He demonstrates tangential thinking loose associations and flight of ideas. There is no observed evidence of psychosis. He demonstrates no verbal or physical aggressiveness for last 2-3 days Plan: The patient will continue on his current medication however we will increase [place] as lithium level is sub -therapeutic . We will discontinue 1:1 We will monitor him for safety and encourage his participation in the milieu. Vital signs reviewed.
[2017-04-16] MEDS: diphenhydrAMINE 50 MG/ML 1 ML VIAL IM PRN (14:22)
[2017-04-16] MEDS: LITHIUM CARBONATE ER 450 MG TABLET.ER PO SCH (20:23)
[2017-04-17] MEDS: flUPHENAZine 2.5 MG/ML (MDV) 10 ML VIAL IM PRN ×4 (04:02→23:49)
[2017-04-17] MEDS: NICOTINE POLACRILEX 2 MG GUM BUCCAL PRN ×6 (05:16→21:45)
[2017-04-17] MEDS: BENZOCAINE/MENTHOL LOZENG 1 EACH LOZENGE MUCOUS MEM PRN ×2 (05:16→21:45)
[2017-04-17] MEDS: HYDROcodone/APAP 7.5-325MG 1 EACH TAB PO PRN ×2 (05:17→12:44)
[2017-04-17] MEDS: amLODIPine 5 MG TAB PO SCH (09:43)
[2017-04-17] MEDS: BACITRACIN 500 UNIT/GM OINT 28.4 GM TUBE TOPICAL SCH ×2 (09:43→21:38)
[2017-04-17] MEDS: cloZAPine 100 MG TAB PO SCH ×3 (09:43→18:00)
[2017-04-17] MEDS: BENZTROPINE MESYLATE 0.5 MG TAB PO SCH ×2 (09:43→21:38)
[2017-04-17] MEDS: LORATADINE 10 MG TAB PO SCH (09:44)
[2017-04-17] MEDS: LITHIUM CARBONATE ER 450 MG TABLET.ER PO SCH ×2 (09:44→21:38)
[2017-04-17] MEDS: PROPRANOLOL LA 60 MG CAP.SA.24H PO SCH (09:44)
[2017-04-17] MEDS: IBUPROFEN 800 MG TAB PO PRN (09:56)
--- NOTE | 2017-04-17 10:58 | XR ---
EXAMINATION TYPE: XR wrist complete LT , 4 VIEWS DATE OF EXAM ORDERED: 04/17/2017 HISTORY: left wrist increasing pain. . COMPARISON: Previous study dated 04/10/2017. FINDINGS: Fractures of the distal radius and ulna are again identified. These are unchanged in appea faisal. No significant callus is present. The fracture lines are still clearly visible. IMPRESSION: REDEMONSTRATION OF FRACTURES OF THE DISTAL RADIUS AND ULNA. THESE ARE UNCHANGED IN APPEARANCE. CODE D: SUBSEQUENT ENCOUNTER FOR CLOSED FRACTURE WITH ROUTINE HEALING.
--- NOTE | 2017-04-17 11:29 | P.PN ---
Progress Note - Text Progress Note Date: 04/17/17 Interval history: The patient was seen in library with RN ,he requested to have X ray on his left arm as he reports that he is having more pain than yesterday , patient was irritable but easy to redirect ,received PRN Prolixin this AM as he was agitated but no acting out ,he is aware that he has PRN if he felt irritable or agitated .Patient denies any sleeping or appetite problems He denies any hallucinations,denies any suicidal or homicidal ideation,denies any side-effect from current psychotropic medications Mental status exam: The patient is male he is dressed in his own clothing . Eye contact is good ,hyperverbal ,pressured speech , . He is endorsing no auditory or visual hallucinations. He is endorsing no specific delusions. . He demonstrates tangential thinking loose associations and flight of ideas. There is no observed evidence of psychosis. He demonstrates no verbal or physical aggressiveness for last 2-3 days Plan: The patient will continue on his current medication however we will check his lithium level on Tuesday . Order X ray to left arm We will monitor him for safety and encourage his participation in the milieu. Vital signs reviewed.
[2017-04-17] MEDS: diphenhydrAMINE 50 MG/ML 1 ML VIAL IM PRN (23:49)
[2017-04-18] MEDS: HYDROcodone/APAP 7.5-325MG 1 EACH TAB PO PRN ×3 (04:47→16:44)
[2017-04-18] MEDS: NICOTINE POLACRILEX 2 MG GUM BUCCAL PRN ×4 (04:47→20:44)
[2017-04-18 08:45] LABS: Clozapine (Clozaril) 104 ng/mL (200-700); Norclozapine 94 ng/mL (200-700)
[2017-04-18] MEDS: PROPRANOLOL LA 60 MG CAP.SA.24H PO SCH (09:43)
[2017-04-18] MEDS: amLODIPine 10 MG TAB PO SCH (09:43)
[2017-04-18] MEDS: BENZTROPINE MESYLATE 0.5 MG TAB PO SCH ×2 (09:44→20:42)
[2017-04-18] MEDS: cloZAPine 100 MG TAB PO SCH ×4 (09:44→17:53)
[2017-04-18] MEDS: LORATADINE 10 MG TAB PO SCH (09:44)
[2017-04-18] MEDS: IBUPROFEN 800 MG TAB PO PRN (09:46)
[2017-04-18] MEDS: MAGNESIUM HYDROXIDE 2,400 MG/10 ML CUP PO PRN (09:58)
[2017-04-18] MEDS: BACITRACIN 500 UNIT/GM OINT 28.4 GM TUBE TOPICAL SCH ×2 (09:58→21:23)
[2017-04-18] MEDS: LITHIUM CARBONATE ER 450 MG TABLET.ER PO SCH (10:12)
--- NOTE | 2017-04-18 14:07 | P.PN ---
Progress Note - Text Progress Note Date: 04/18/17 Interval History: Patient is a 51-year-old male who was seen in the office today without staff present. Patient reports that he slept about 7 hours last night and states that he feels the medication has been helpful. Patient states that he used the IMs yesterday because he was getting agitated but could not describe it clear to me. Patient states that he is not having any side effects from the medication and reported no stiffness or difficulty swallowing. Patient reported that he has had difficulty controlling his temper, stated that the incident with his neighbor prior to his admission involved a neighbor's dog biting him, then the next day the dog jumped the fence and chased the patient's new puppy around the house. Patient states that he chased the dog and did state "hyper going to kill you" referring to the dog and he stated perhaps to his neighbor. Patient apologized for his past behavior and stated that he should never have hit anyone here and should not have been yelling and carrying on as he was. Patient states that he has difficulties at times following his train of thought and and he states it's not because he is having racing thoughts. Patient had no other concerns at this time Mental Status: Appearance/Attitude: Patient was appropriately dressed, made good eye contact and was cooperative Behavior: Patient did not display any psychomotor agitation or retardation. Speech/Language: Patient was spontaneous, speech is of normal volume and rhythm and he was coherent Thought Process: Patient was goal-directed, no evidence of loose association or flight of ideas however there were several times during the interview when the patient lost his train of thought. Thought Content: Patient denied auditory or visual hallucinations and no delusions or paranoid ideation were elicited. Patient continues to express that he is trying to help other patients and is a person who likes to help people. Patient reports that he is not feeling angry or irritable, he states that he has a short temper and acknowledged that he was easily angered here when he was told that he could not do things. Patient was apologetic regarding his past behavior. Patient reported he was sleeping and eating well. He denies having racing thoughts Suicidal/Homicidal Ideation: Patient denied current suicidal or homicidal ideation Sensorium/Cognition: Patient was alert and oriented to person, place, and time and his recent and remote memory were grossly intact although the patient did lose his train of thought several times during the interview Mood/Affect: Patient's mood is less labile, he was pleasant today with decreased irritability and an appropriate affect Insight/Judgment: Patient's insight and judgment are improving Assessment: Patient has been off one-to-one supervision, he however received Prolixin 2.5 mg IM injections on 4 occasions within the last 24 hours for what he described as feeling agitated although he could not tell me what he meant by that. Patient states he is feeling better, sleeping 7 hours a night and states that he sees his behavior in the past was inappropriate. The patient states he is feeling calm her, he denied racing thoughts and states that he is not feeling suicidal or homicidal. Patient reported no side effects from his medication. A repeat EKG was unchanged from his prior EKG. Patient's CBC reveals no abnormalities. Plan: Patient and I discussed his lithium which had been increased to 900 mg twice a day and I was concerned because I suspect his last lithium level of 0.3 was done when his lithium was changed to 600 twice a day and he was not compliant with those doses on a regular basis. Patient drinks about a gallon of water a day and I will cautiously increase his lithium and have changed it to 900 mg in the morning foreigner 50 mg at bedtime and we'll repeat a lithium level tomorrow morning. Patient continues on Clozaril 100 mg twice a day and 200 mg in the evening. Patient is on Prolixin 2.5 twice a day and I will increase this to 5 mg twice a day due to his continued need for IM medication. Patient continues on Cogentin 0.5 mg twice a day there is no evidence of any side effects. Patient and I had a discussion regarding Prolixin the long- acting injectable formulation was available and once he is stable on an oral dose that he could certainly consider this and he was agreeable to this consideration. Patient continues to require hospitalization to further stabilize his mood.
[2017-04-18] MEDS: diphenhydrAMINE 50 MG/ML 1 ML VIAL IM PRN (15:12)
[2017-04-18] MEDS: flUPHENAZine 2.5 MG/ML (MDV) 10 ML VIAL IM PRN (15:12)
[2017-04-18] MEDS ORDERED: LITHIUM CARBONATE ER 450 MG TABLET.ER PO SCH (21:00)
[2017-04-19] MEDS: HYDROcodone/APAP 7.5-325MG 1 EACH TAB PO PRN ×4 (00:18→21:11)
[2017-04-19] MEDS: NICOTINE POLACRILEX 2 MG GUM BUCCAL PRN ×5 (00:18→19:22)
[2017-04-19] MEDS: IBUPROFEN 800 MG TAB PO PRN ×2 (06:17→15:53)
[2017-04-19] MEDS: BACITRACIN 500 UNIT/GM OINT 28.4 GM TUBE TOPICAL SCH ×2 (08:48→21:15)
[2017-04-19] MEDS: LORATADINE 10 MG TAB PO SCH (08:49)
[2017-04-19] MEDS: BENZTROPINE MESYLATE 0.5 MG TAB PO SCH ×2 (08:49→21:08)
[2017-04-19] MEDS: amLODIPine 10 MG TAB PO SCH (08:49)
[2017-04-19] MEDS: PROPRANOLOL LA 60 MG CAP.SA.24H PO SCH (08:49)
[2017-04-19 08:53] VITALS: BMI 23.0
[2017-04-19] MEDS ORDERED: LITHIUM CARBONATE ER 450 MG TABLET.ER PO SCH (09:00)
[2017-04-19] MEDS: cloZAPine 100 MG TAB PO SCH ×3 (09:16→19:20)
--- NOTE | 2017-04-19 11:54 | P.PN ---
Progress Note - Text Progress Note Date: 04/19/17 Interval History: Patient is a 51-year-old male who was seen today, he reports he slept at least 7 hours last night and states he fell asleep easily. Patient states he is able to nap during the day as well. He reports that he is not feeling groggy and reports no complaints of side effects. Patient states that he is not having racing thoughts, feels his agitation is well controlled states he is not getting irritated on the unit. Patient states that he has been attending some groups and activities but has also been sleeping during the day periodically. He received 1 when necessary of Prolixin yesterday afternoon. Patient had no other complaints at this time. Mental Status: Appearance/Attitude: Patient was appropriately dressed, has a brace on his left forearm, made good eye contact and was cooperative. Behavior: Patient does not display any psychomotor agitation or retardation. Speech/Language: Patient is spontaneous, his speech is not pressured today, speaks in normal tone and volume and he is coherent Thought Process: Patient is goal-directed, he is not tangential or circumstantial and there is no evidence of loose associations or flight of ideas. Patient states that he is not having racing thoughts and is able to focus. Thought Content: Patient denied auditory or visual hallucinations and no delusions or paranoid ideation were elicited. Patient did not spontaneously verbalize today that he was trying to help other people on the unit but was focused on his medications, discharge plans. Patient states that he slept about 7 hours last night and is feeling rested and is able to nap during the day. Patient states his appetite is good. Suicidal/Homicidal Ideation: Patient denied any current suicidal or homicidal ideation Sensorium/Cognition: Patient was alert and oriented to person, place, and time and his recent and remote memory were grossly intact, patient was better able to focus during the interview today. Mood/Affect: Patient's mood is euthymic, he is not labile and his affect is appropriate Insight/Judgment: Patient's insight and judgment is fair Assessment: Patient reports his sleep is good, he is able to fall asleep easily and is not feeling sedated or groggy during the day. Patient has not had any episodes of verbal or physical threatening or aggressive behavior and used only one Prolixin IM as needed shot yesterday. He states that he is not feeling irritated or irritable and is not having any side effects from the medication. Patient states that he is able to focus better and his speech was not pressured today. Patient denies racing thoughts and denies any homicidal or suicidal ideation at this time. Patient and I discussed his threats to the neighbor regarding the neighbors dog in patient was able to problem solve that by stating he would call the police in the future. Plan: Patient will continue on Clozaril 100 mg twice a day and 200 mg in the evening, Prolixin 5 mg twice a day and will change his lithium to 750 mg twice a day as a level this morning was 0.4. We will reassess his lithium level on Tuesday after he has been on this dose for several days at a consistent level. We'll repeat patient's CBC with differential tomorrow to renew his Clozaril. Patient will also continue on Cogentin 0.5 mg twice a day. Patient and I again discussed using Prolixin decanoate and I discussed with him should he not require any further IM injections of Prolixin that we could begin the long- acting at 12-1/2 mg every 2 weeks. This time is Prolixin oral dose does not appear to need to be increased. Patient continues to require hospitalization to further stabilize his mood and his medications.
[2017-04-19] MEDS: BENZOCAINE/MENTHOL LOZENG 1 EACH LOZENGE MUCOUS MEM PRN (21:08)
[2017-04-19] MEDS: LITHIUM CARBONATE 150 MG CAP PO SCH (21:10)
[2017-04-20] MEDS: NICOTINE POLACRILEX 2 MG GUM BUCCAL PRN ×5 (04:34→20:31)
[2017-04-20] MEDS: IBUPROFEN 800 MG TAB PO PRN ×2 (04:34→11:58)
[2017-04-20] MEDS: HYDROcodone/APAP 7.5-325MG 1 EACH TAB PO PRN ×3 (04:34→17:45)
[2017-04-20] MEDS: cloZAPine 100 MG TAB PO SCH ×3 (09:10→18:20)
[2017-04-20] MEDS: PROPRANOLOL LA 60 MG CAP.SA.24H PO SCH (09:10)
[2017-04-20] MEDS: BENZTROPINE MESYLATE 0.5 MG TAB PO SCH ×2 (09:10→20:30)
[2017-04-20] MEDS: BACITRACIN 500 UNIT/GM OINT 28.4 GM TUBE TOPICAL SCH ×2 (09:10→20:30)
[2017-04-20] MEDS: LORATADINE 10 MG TAB PO SCH (09:10)
[2017-04-20] MEDS: amLODIPine 10 MG TAB PO SCH (09:10)
[2017-04-20] MEDS: LITHIUM CARBONATE 150 MG CAP PO SCH ×2 (09:11→20:30)
[2017-04-20 09:22] LABS: Basophils # (A) 0.1 k/uL (0-0.2); Basophils % (A) 1 %; Eosinophils # (A) 0.5 k/uL (0-0.7); Eosinophils % (A) 5 %; HCT 40.6 % (39.0-53.0); HGB 13.1 gm/dL (13.0-17.5); Lymphocytes # (A) 1.4 k/uL (1.0-4.8); Lymphocytes % (A) 13 %; MCH 28.9 pg (25.0-35.0); MCHC 32.3 g/dL (31.0-37.0); MCV 89.3 fL (80.0-100.0); Mean Platelet Volume 6.9; Monocytes # (A) 0.8 k/uL (0-1.0); Monocytes % (A) 7 %; Neutrophils # (A) 7.3 k/uL (1.3-7.7); Neutrophils % (A) 72 %; Platelet Count 371 k/uL (150-450); RBC 4.55 m/uL (4.30-5.90); RDW 12.8 % (11.5-15.5); WBC 10.1 k/uL (3.8-10.6)
[2017-04-20] MEDS ORDERED: fluPHENAZine DECANOATE 25 MG/ML 5ML MDV IM ONE (14:32)
--- NOTE | 2017-04-20 14:49 | P.PN ---
Progress Note - Text Progress Note Date: 04/20/17 Interval History: Patient is a 51-year-old male who was seen today, patient presented and stated that he has been able to nap during the day and has been sleeping at least 7 hours at night. Patient reported that he is not having racing thoughts and can focus better. He reports he is not feeling as irritable and states that his appetite is good. Patient also reports that he is eager to return home to his fiance and her 7-year-old son. Patient had no complaints of side effects from the medication. Mental Status: Appearance/Attitude: Patient was appropriately dressed, wearing a brace on his left forearm and made good eye contact and was cooperative. Behavior: Patient does not exhibit any psychomotor agitation or retardation. Speech/Language: Patient's speech is spontaneous, he is not pressured and he speaks in a normal volume and rhythm. Patient is coherent Thought Process: Patient is goal-directed, he is not tangential or circumstantial and there is no evidence of loose association or flight of ideas. Thought Content: Patient denies auditory or visual hallucinations and no delusions or paranoid ideation were elicited. Patient reports his thoughts are not racing and that he is better able to focus and concentrate. Patient states he is sleeping well and is actually napping during the day. Patient's appetite remains good. Patient states he is feeling much less irritable and feels his mood is much more stable. Suicidal/Homicidal Ideation: Patient denies any current suicidal or homicidal ideation Sensorium/Cognition: Patient is alert and oriented to person, place, time and his recent and remote memory are grossly intact and he reports that his focus and concentration are improved Mood/Affect: Patient's mood is stable, he is pleasant and his affect is appropriate Insight/Judgment: Patient's insight and judgment are fair Assessment: Patient is continued to do well on the unit not requiring any further when necessary Prolixin injections. Patient has been sleeping and states that he is able to nap during the day, he reports no further racing thoughts and states he is better able to concentrate and focus. Patient has not had any episodes of physically or verbally threatening behavior and states he is not feeling as irritable and is not getting angry. Patient states that he is eager to return home. Patient reports no side effects from the medication and none were elicited on exam. Plan: Patient and I again discussed Prolixin Decanoate, the use and side effects and he was agreeable to receiving an injection today of 12.5 mg IM. Patient will continue on Prolixin 5 mg twice a day for the next 48-72 hours and may consider discharge on a lowered oral dose for several days. Patient continues on Clozaril 100 mg twice a day and 200 in the evening, lithium 7 or 50 mg twice a day and Cogentin 0.5 mg twice a day. Patient's CBC today was within normal limits and will obtain a lithium level on Tuesday morning prior to his potential discharge. Patient and I discussed trying to decrease the use of [place] while he is an inpatient as he has been taking it every 6 hours as I stated that I would not discharge him on [place]. Patient has been wearing the brace on his left forearm and states that icing it has helped with the pain. Patient and I discussed possible discharge this Tuesday, he'll report if he has any side effects from the injection of a long-acting Prolixin today.
[2017-04-21] MEDS: NICOTINE POLACRILEX 2 MG GUM BUCCAL PRN ×4 (02:05→18:28)
[2017-04-21] MEDS: IBUPROFEN 800 MG TAB PO PRN ×3 (02:31→18:24)
[2017-04-21] MEDS ORDERED: diphenhydrAMINE 50 MG CAP PO STA (05:32)
[2017-04-21] MEDS: amLODIPine 10 MG TAB PO SCH (09:00)
[2017-04-21] MEDS: cloZAPine 100 MG TAB PO SCH ×2 (09:00→13:31)
[2017-04-21] MEDS: BACITRACIN 500 UNIT/GM OINT 28.4 GM TUBE TOPICAL SCH ×2 (09:00→20:51)
[2017-04-21] MEDS: LORATADINE 10 MG TAB PO SCH (09:01)
[2017-04-21] MEDS: PROPRANOLOL LA 60 MG CAP.SA.24H PO SCH (09:01)
[2017-04-21] MEDS: BENZTROPINE MESYLATE 0.5 MG TAB PO SCH ×2 (09:01→19:58)
[2017-04-21] MEDS: LITHIUM CARBONATE 150 MG CAP PO SCH ×2 (09:02→19:58)
[2017-04-21] MEDS: HYDROcodone/APAP 7.5-325MG 1 EACH TAB PO PRN ×2 (10:02→15:49)
[2017-04-21] MEDS: MAGNESIUM HYDROXIDE 2,400 MG/10 ML CUP PO PRN (10:10)
[2017-04-21] MEDS ORDERED: DOCUSATE 100 MG CAP PO PRN (10:28)
--- NOTE | 2017-04-21 14:38 | P.PN ---
Progress Note - Text Progress Note Date: 04/21/17 Interval History: Patient is a 51-year-old male who was seen today and reports that he is sleeping well at night, and is feeling slowed. Patient states he has no side effects from the medications but is feeling that he is moving slower than he was before and states that he is thinking clearer and is able to focus and concentrate. Patient states he is not feeling irritable and has not had any difficulties on the unit. Patient is in her to return home, patient states that he is constipated patient was given milk of magnesia this morning as well as Colace. Patient is also reporting that he continues to require [place] for the pain in his left forearm. Mental Status: Appearance/Attitude: Patient was appropriately dressed, wearing a splint on his left forearm made good eye contact and was cooperative. Behavior: Patient did not display any psychomotor agitation or retardation. Patient was able to sit calmly and quietly during the interview Speech/Language: Patient's speech is spontaneous, of normal volume and rhythm and he is coherent. Thought Process: Patient is goal-directed there is no evidence of circumstantial or tangential thought and no loose associations or flight of ideas. Patient reports he is no longer having racing thoughts Thought Content: Patient denies any auditory or visual hallucinations and no delusions or paranoid ideation were elicited. Patient states he is sleeping well and eating well. He reports that he feels slowed down and states that he is able to relax and rest. Patient reports that he is no longer feeling irritable or agitated Suicidal/Homicidal Ideation: Patient denies any current suicidal or homicidal ideation Sensorium/Cognition: Patient is alert and oriented to person, place, and time and his recent and remote memory were grossly intact. Mood/Affect: Patient's mood is stable and his affect is appropriate Insight/Judgment: Patient's insight and judgment are fair. Assessment: Patient reports that he feels slowed and states that he is now able to sit and relax, patient states he is able to focus and his concentration has improved. Patient has been sleeping for at least 7 hours at night and is able to nap during the day. Patient has not had any episodes of verbal or physical threatening behavior. Patient states that he is not feeling irritable. Patient reports no side effects from his medications other than that he reported constipation today and has been ordered Colace as well as milk of magnesia. Patient continues to wear a splint on his left forearm. Plan: Patient continues on Clozaril 100 mg twice a day and 200 mg in the evening , Prolixin 5 mg twice a day, patient received Prolixin decanoate 12.5 mg IM yesterday, Cogentin 0.5 mg twice a day and lithium 750 mg 3 times a day. Patient and I discussed discharge plans as well as the fact that his Prolixin IM dose may be increased in response to his behavior at home. Patient and I discussed discharge on a lower dose of oral Prolixin. Patient and I also discussed the mobile crisis unit being involved with him after discharge and he was quite accepting of this and agreeable. Patient and I again reviewed symptoms of bessy as well as the need for him to continue to follow good sleep hygiene, compliance with medication and follow-up appointments. Patient I talked about discharge tomorrow and patient will have a lithium level drawn in the morning.
[2017-04-21] MEDS ORDERED: cloZAPine 100 MG TAB PO SCH (19:00)
[2017-04-22] MEDS: HYDROcodone/APAP 7.5-325MG 1 EACH TAB PO PRN ×2 (00:53→08:57)
[2017-04-22] MEDS: NICOTINE POLACRILEX 2 MG GUM BUCCAL PRN ×2 (00:53→07:29)
[2017-04-22 00:56] VITALS: PULSE 88
[2017-04-22] MEDS: IBUPROFEN 800 MG TAB PO PRN (02:00)
[2017-04-22 06:36] VITALS: BP 151/85; RESP 16; TEMP 98.6
[2017-04-22] MEDS: PROPRANOLOL LA 60 MG CAP.SA.24H PO SCH (08:57)
[2017-04-22] MEDS: cloZAPine 100 MG TAB PO SCH ×2 (08:57→13:00)
[2017-04-22] MEDS: amLODIPine 10 MG TAB PO SCH (08:57)
[2017-04-22] MEDS: BENZTROPINE MESYLATE 0.5 MG TAB PO SCH (08:57)
[2017-04-22] MEDS: LORATADINE 10 MG TAB PO SCH (08:57)
[2017-04-22] MEDS: LITHIUM CARBONATE 150 MG CAP PO SCH (09:05)
[2017-04-22] MEDS: BACITRACIN 500 UNIT/GM OINT 28.4 GM TUBE TOPICAL SCH (09:06)
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
== END 2017-04-22 13:15 | disposition home or self-care (01) | DRG 885 ==
LOC: EC 22:46 → 3MHU 04-05 01:34
PROVIDERS: ADMIT Psychiatry & Neurology Psychiatry; ATTEND Psychiatry & Neurology Psychiatry
DX: F31.2 Bipolar disorder, current episode manic severe with psychotic features (principal); Z78.1 Physical restraint status; S52.612A Displaced fracture of left ulna styloid process, initial encounter for closed fracture; S52.502A Unspecified fracture of the lower end of left radius, initial encounter for closed fracture; F17.210 Nicotine dependence, cigarettes, uncomplicated; I10 Essential (primary) hypertension; R45.1 Restlessness and agitation; R45.4 Irritability and anger; W22.09XA Striking against other stationary object, initial encounter; W18.30XA Fall on same level, unspecified, initial encounter; G47.00 Insomnia, unspecified; J30.2 Other seasonal allergic rhinitis; N40.0 Benign prostatic hyperplasia without lower urinary tract symptoms; F12.90 Cannabis use, unspecified, uncomplicated; S01.81XA Laceration without foreign body of other part of head, initial encounter; K59.00 Constipation, unspecified; Z82.0 Family history of epilepsy and other diseases of the nervous system; Z79.899 Other long term (current) drug therapy; Z91.14 Patient's other noncompliance with medication regimen; Z71.6 Tobacco abuse counseling; Z91.19 Patient's noncompliance with other medical treatment and regimen; Z88.8 Allergy status to other drugs, medicaments and biological substances
CPT/HCPCS: 36415; 80048; 80053; 80061; 80076; 80159; 80178; 80306; 81003; 82075; 83036; 83520; 84443; 85025; 85027; 93005; 99285